=== PATIENT | male | born 1985 | race Two or more races ===

== ENCOUNTER 2022-12-10 09:17 | Emergency (ER) | payer OTHER ==
[~2022-12-10] VITALS: Ht 167.6 cm; Wt 83.9 kg
[2022-12-10] MEDS ORDERED: AMOX TR-K250 MG/5 M PO (09:27)
[2022-12-10] MEDS ORDERED: MOTRIN IB200 M1 PO (09:27)
[2022-12-10] MEDS ORDERED: ORPHENADRINE C100 MG PO (13:56)
[2022-12-10] MEDS ORDERED: DICLOFENAC POTA50 MG PO (13:56)
== END 2022-12-10 14:50 ==
LOC: ER 09:17
DX: S00.33XA Contusion of nose, initial encounter (principal); V43.52XA Car driver injured in collision with other type car in traffic accident, initial encounter; Y93.89 Activity, other specified; Y92.413 State road as the place of occurrence of the external cause; S13.9XXA Sprain of joints and ligaments of unspecified parts of neck, initial encounter